=== PATIENT | male | born 1955 | race Caucasian/White ===

== ENCOUNTER 2021-04-04 08:45 | Inpatient (IN) | payer OTHER ==
[2021-04-04 09:18] LABS: Absolute Lymphocytes (CBC) 1.4 K/uL (0.7-4.9); Hematocrit 41.2 % (39.6-49.0); MPV 9.3 fL (7.6-11.3); RBC Red Blood Cell Count 4.87 M/uL (4.33-5.43)
[2021-04-04 09:19] LABS: Protime INR 1.15
[2021-04-04 09:22] LABS: Urine Blood Negative (Negative); Urine Glucose Trace (Negative); Urine Protein 2+ (Negative); Urine Specific Gravity >=1.030 (1.005-1.030); Urine pH 5.5 (5.0-7.0)
[2021-04-04 09:45] LABS: Albumin 3.2 g/dL (3.4-5.0); Bilirubin Direct 0.3 mg/dL (0-0.2); Potassium 3.8 mmol/L (3.5-5.1); Troponin High Sensitivity 13.8 pg/mL (<58.9)
[2021-04-04 09:48] LABS: SARS-COV-2 RT PCR NEGATIVE (NEGATIVE)
[2021-04-04 09:49] LABS: Urine Bacteria <20 /HPF (NONE SEEN); Urine Mucus 2+ /HPF (NONE SEEN); Urine RBC NONE SEEN /HPF (NONE SEEN)
--- NOTE | 2021-04-04 09:53 | RAD REPORT ---
EXAM DESCRIPTION: CT - Head Brain Wo Cont - 04/04/2021 9:24 am CLINICAL HISTORY: MENTAL STATUS CHANGE COMPARISON: <Comparisons> TECHNIQUE: Axial 5 mm thick images of the head were obtained without IV contrast. All CT scans are performed using dose optimization technique as appropriate and may include automated exposure control or mA/KV adjustment according to patient size. FINDINGS: No intracranial hemorrhage, mass, edema or shift of mid-line structures. No acute cortical based infarction seen. No cortical edema or sulcal effacement. Moderate severity atrophy is present more prominent than typically seen. Ventricles are in proportion to the volume loss. Chronic ischemic changes are mild. No abnormal extra-axial fluid collections. Mastoid air cells are clear. Mucosal thickening seen scattered in the paranasal sinuses without air-f luid levels present. No acute bony findings. IMPRESSION: No acute intracranial finding identifiable. Advanced for age atrophy changes are present with ventricles in proportion to the volume loss.
--- NOTE | 2021-04-04 10:57 | EDPHYS ---
Physician Documentation [facility] Name: Zac Perez Age: 66 yrs Sex: Male : 1955 Arrival Date: 04/04/2021 Time: 08:48 Bed 4 Private MD: ED Physician Georgina Dempsey HPI: 04/04 08:52 This 66 yrs old Unknown Male presents to ER via Unassigned with complaints of Altered cp Mental Status. 08:52 The patient presents with decreased mental status. Onset: The symptoms/episode cp began/occurred yesterday. Possible causes: unknown. Patient's baseline: Neuro: alert and fully oriented, Motor: no deficits, Ambulation: walks without assistance, Speech: normal. Historical: - Allergies: 09:04 No Known Allergies; daly - Home Meds: 09:04 Lasix 40 mg Oral tab 1 tab 2 times per day [Active]; potassium chloride 20 mEq Oral daly TbER 1 tab 2 times per day [Active]; valproic acid 125 mg Oral cpDR 3 times per day [Active]; loperamide 2 mg Oral tab 2 tabs [Active]; Namenda XR 28 mg oral CSpX 1 cap once daily [Active]; acetaminophen 325 mg Oral tab 1 tab every 4-6 hours [Active]; lisinopril 40 mg Oral tab 1 tab once daily [Active]; melatonin 10 mg Oral tab [Active]; quetiapine 200 mg oral Tb24 1 tab once daily [Active]; buspirone 10 mg Oral tab 1 tab 3 times per day [Active]; quetiapine 50 mg oral Tb24 1 tab once daily [Active]; thiamine HCl (vitamin B1) 100 mg Oral tab [Active]; folic acid 1 mg Oral tab 1 tab once daily [Active]; escitalopram oxalate 10 mg oral tab 1 tab once daily [Active]; - PMHx: 17:03 Alcoholism; Major depressive disorder; daly 17:05 Anxiety; Schizophrenia; daly - PSHx: 17:06 None; daly - Immunization history:: Adult Immunizations up to date. - Social history:: Smoking status: unknown. ROS: 08:53 Constitutional: Negative for fever. cp 08:53 Neuro: Positive for altered mental status. 08:53 Unable to obtain ROS due to altered mental status. Exam: 08:54 Head/Face: Normocephalic, atraumatic. cp 08:54 Constitutional: The patient appears in no acute distress, alert, awake, non-diaphoretic, non-toxic, well developed, well nourished. 08:54 Eyes: Pupils: equal, round, and reactive to light and accomodation, Conjunctiva: normal, no exudate, no injection, Sclera: no appreciated abnormality, Lids and lashes: appear normal, bilaterally. 08:54 ENT: External ear(s): are unremarkable, Ear canal(s): cerumen impaction, that is moderate, bilaterally, Nose: is normal, Mouth: Lips: dry, Oral mucosa: dry, Posterior pharynx: Airway: no evidence of obstruction, patent. 08:54 Neck: ROM/movement: nuchal rigidity, is not appreciated. 08:54 Chest/axilla: Inspection: normal, Palpation: is normal, no crepitus, no tenderness. 08:54 Respiratory: the patient does not display signs of respiratory distress, Respirations: normal, no use of accessory muscles, no retractions, labored breathing, is not present, Breath sounds: are clear throughout, no decreased breath sounds, no stridor, no wheezing. 08:54 Abdomen/GI: Inspection: distension, that is mild, Bowel sounds: active, all quadrants, Palpation: abdomen is soft and non-tender, in all quadrants. 08:54 Neuro: Orientation: to person, Mentation: confused, Motor: moves all fours. Vital Signs: 09:03 BP 105 / 72; Pulse 95; Resp 18; Temp 98.6(O); Pulse Ox 97% on R/A; Weight 111.13 kg; daly Height 6 ft. 0 in. (182.88 cm); 09:24 BP 108 / 68; Pulse 88; Resp 18; Pulse Ox 97% on R/A; daly 10:29 BP 135 / 76; Pulse 102; Resp 18; Pulse Ox 98% on R/A; daly 11:31 BP 128 / 97; Pulse 92; Resp 15; ww 12:30 BP 143 / 70; Pulse 91; Resp 16; Pulse Ox 100% on R/A; ww 13:50 BP 155 / 82; Pulse 90; Resp 23; Pulse Ox 99% on R/A; ww 14:42 BP 149 / 78; Pulse 97; Resp 16; Pulse Ox 100% on R/A; ww 15:00 BP 137 / 76; Pulse 94; Resp 18; Pulse Ox 97% on R/A; ww 16:01 BP 133 / 69; Pulse 91; Resp 18; Pulse Ox 99% on R/A; ww 17:10 BP 127 / 87; Pulse 90; Resp 16; Pulse Ox 100% on R/A; ww 09:03 Body Mass Index 33.23 (111.13 kg, 182.88 cm) daly MDM: 08:52 Patient medically screened. cp 09:00 Differential Diagnosis: CVA, electrolyte abnormality, intracranial bleed, overdose, cp pneumonia, seizure, sepsis, UTI, volume depletion. 11:05 Data reviewed: vital signs, nurses notes, lab test result(s), EKG, radiologic studies, cp CT scan, plain films. 11:05 Test interpretation: by ED physician or midlevel provider: ECG, plain radiologic cp studies. Physician consultation: Lennox Diana was called at 11:00, was contacted at 11:00, regarding admission, to the telemetry unit. patient's condition. 04/04 08:51 Order name: COVID-19/FLU A+B (Document "Date of Onset" if Symptomatic); Complete Time: cp 10:04/04 08:51 Order name: AMMONIA; Complete Time: 10:22 04/04 08:51 Order name: Blood Culture Adult (2) cp 04/04 08:51 Order name: Lactate; Complete Time: 09:42 04/04 08:51 Order name: Procalcitonin; Complete Time: 10:22 04/04 08:51 Order name: Urine Microscopic Only; Complete Time: 10:22 04/04 10:23 Interpretation: Reviewed. 04/04 08:51 Order name: Basic Metabolic Panel; Complete Time: 10:22 cp 04/04 10:22 Interpretation: Normal except: GLUC 140; BUN 20; GFR 65. 04/04 08:51 Order name: CBC with Diff; Complete Time: 09:42 cp 04/04 09:42 Interpretation: Normal except: WBC 14.10; HGB 13.5; REMIGIO% 74.4; LYM% 10.0; MN% 14.8; cp NEUT A 10.5; MNA 2.1. 04/04 08:51 Order name: LFT's; Complete Time: 10:22 cp 04/04 10:23 Interpretation: Normal except: AST 39; BILID 0.3; ALB 3.2; GLOB 4.8; A/G 0.7. 04/04 08:51 Order name: Magnesium; Complete Time: 10:22 04/04 08:51 Order name: NT PRO-BNP; Complete Time: 10:22 cp 04/04 10:23 Interpretation: NT PRO-BNP 440; Reviewed. 04/04 08:51 Order name: PT-INR; Complete Time: 09:25 cp 04/04 09:25 Interpretation: Reviewed. 04/04 08:51 Order name: Troponin HS; Complete Time: 10:22 cp 04/04 09:22 Order name: Urine Dipstick-Ancillary; Complete Time: 09:25 EDMS 04/04 09:25 Interpretation: Normal except: UKET 1+; UPROT 2+. 04/04 08:51 Order name: Urine Dipstick-Ancillary (obtain specimen); Complete Time: 09:45 04/04 08:51 Order name: Hunt; Complete Time: 09:45 04/04 08:51 Order name: XRAY Chest (1 view); Complete Time: 11:01 04/04 08:51 Order name: EKG; Complete Time: 08:52 04/04 08:51 Order name: Cardiac monitoring; Complete Time: 09: 04/04 08:51 Order name: EKG - Nurse/Tech; Complete Time: 09:11 04/04 08:51 Order name: IV Saline Lock; Complete Time: 09: 04/04 08:51 Order name: Labs collected and sent; Complete Time: 09: 04/04 08:51 Order name: O2 Per Protocol; Complete Time: 09: 04/04 08:51 Order name: O2 Sat Monitoring; Complete Time: 09:11 04/04 08:51 Order name: CT Head Brain wo Cont; Complete Time: 10: 04/04 09:17 Order name: Labs - recollect needed: recollect ammonia, send it with ice.; Complete bd Time: 09:44 04/04 18:00 Order name: CT EDMS Administered Medications: 14:38 Drug: NS 0.9% 250 ml Route: IV; Rate: bolus; Site: left forearm; 19:50 Follow up: IV Status: Completed infusion; IV Intake: 250ml sm5 15:25 Drug: NS 0.9% 500 ml Route: IV; Rate: 100 ml/hr; Site: left forearm; 19:50 Follow up: IV Status: Completed infusion; IV Intake: 500ml sm5 Disposition: 11:20 Chart complete. cp Disposition Summary: 04/04/21 10:56 Hospitalization Ordered Hospitalization Status: Inpatient Admission cp Provider: Lennox Ortiz cp Condition: Stable cp Problem: new cp Symptoms: are unchanged cp Bed/Room Type: Standard cp Location: Telemetry/MedSurg (observation)(04/04/21 19:42) eb1 Room Assignment: [facility](04/04/21 19:42) eb1 Diagnosis - Altered mental status, unspecified cp Forms: - Medication Reconciliation Form cp - SBAR form cp Signatures: Dispatcher [employer] EDPrincess Rodriges Shelby, RN RN Justin Maldonado PA PA cp Janel Rosa RN RN eb1 Chiquita Galvez RN ROBERTA Deja Rojas RN Negin Willett RN 5 Corrections: (The following items were deleted from the chart) 17:09 10:56 Telemetry/MedSurg (Inpatient) cp ss 17:09 10:56 cp ss 19:42 17:[address] [facility] ER HOLD ss eb1 19:42 17:09 ERHOLD- ss eb1
--- NOTE | 2021-04-04 10:57 | ER ---
Nurse's Notes [facility] Name: Zac Perez Age: 66 yrs Sex: Male : 1955 Arrival Date: 04/04/2021 Time: 08:48 Bed 4 Private MD: Diagnosis: Altered mental status, unspecified Presentation: 04/04 08:48 Transition of care: patient was received from another setting of care (long-term care [facility]. 09:03 Chief complaint: EMS states: AMS from alf x1day. Coronavirus screen: Vaccine daly status: Patient reports receiving the 2nd dose of the covid vaccine. Ebola Screen: Patient denies travel to an Ebola-affected area in the 21 days before illness onset. Initial Sepsis Screen: Does the patient meet any 2 criteria? HR > 90 bpm. Does the patient have a suspected source of infection? No. Patient's initial sepsis screen is negative. Risk Assessment: Do you want to hurt yourself or someone else? Patient reports no desire to harm self or others. Onset of symptoms was April 03, 2021. 09:03 Method Of Arrival: EMS: [facility] daly 09:03 Acuity: HASEEB 3 daly Triage Assessment: 09:04 General: Appears in no apparent distress. comfortable, Behavior is calm, cooperative. daly Pain: Denies pain. Neuro: Level of Consciousness is awake, obeys commands, lethargic, Oriented to person. Historical: - Allergies: 09:04 No Known Allergies; daly - Home Meds: 09:04 Lasix 40 mg Oral tab 1 tab 2 times per day [Active]; potassium chloride 20 mEq Oral daly TbER 1 tab 2 times per day [Active]; valproic acid 125 mg Oral cpDR 3 times per day [Active]; loperamide 2 mg Oral tab 2 tabs [Active]; Namenda XR 28 mg oral CSpX 1 cap once daily [Active]; acetaminophen 325 mg Oral tab 1 tab every 4-6 hours [Active]; lisinopril 40 mg Oral tab 1 tab once daily [Active]; melatonin 10 mg Oral tab [Active]; quetiapine 200 mg oral Tb24 1 tab once daily [Active]; buspirone 10 mg Oral tab 1 tab 3 times per day [Active]; quetiapine 50 mg oral Tb24 1 tab once daily [Active]; thiamine HCl (vitamin B1) 100 mg Oral tab [Active]; folic acid 1 mg Oral tab 1 tab once daily [Active]; escitalopram oxalate 10 mg oral tab 1 tab once daily [Active]; - PMHx: 17:03 Alcoholism; Major depressive disorder; daly 17:05 Anxiety; Schizophrenia; daly - PSHx: 17:06 None; daly - Immunization history:: Adult Immunizations up to date. - Social history:: Smoking status: unknown. Screenin:12 Abuse screen: Denies threats or abuse. Denies injuries from another. Nutritional daly screening: No deficits noted. Tuberculosis screening: No symptoms or risk factors identified. Fall Risk Mental Status- Overestimates/Forgets Limitations (15 pts.). Assessment: 09:12 Reassessment: refer to triage notes. Pain: Denies pain. Neuro: Level of Consciousness daly is awake, obeys commands, lethargic, Oriented to person. 10:30 Reassessment: Patient appears in no apparent distress at this time. No changes from ww previously documented assessment. Neuro: Level of Consciousness is awake, obeys commands, confused. 11:31 Reassessment: Patient appears in no apparent distress at this time. No changes from ww previously documented assessment. 12:20 Reassessment: Patient appears in no apparent distress at this time. No changes from ww previously documented assessment. Neuro: Level of Consciousness is awake, confused. 13:06 Reassessment: Patient appears in no apparent distress at this time. No changes from ww previously documented assessment. Neuro: Level of Consciousness is awake, obeys commands, confused, Oriented to person. 14:41 Reassessment: Patient appears in no apparent distress at this time. No changes from ww previously documented assessment. tolerated water and apple sauce. 15:30 Reassessment: No changes from previously documented assessment. Neuro: Level of ww Consciousness is awake, confused. 16:35 Reassessment: No changes from previously documented assessment. ww 17:29 Reassessment: Patient appears in no apparent distress at this time. No changes from ww previously documented assessment. 18:11 Reassessment: Patient appears in no apparent distress at this time. No changes from ww previously documented assessment. 19:50 Reassessment: No changes from previously documented assessment. Patient and/or family sm5 updated on plan of care and expected duration. Pain level reassessed. General: Appears in no apparent distress. comfortable, Behavior is calm. Vital Signs: 09:03 BP 105 / 72; Pulse 95; Resp 18; Temp 98.6(O); Pulse Ox 97% on R/A; Weight 111.13 kg; daly Height 6 ft. 0 in. (182.88 cm); 09:24 BP 108 / 68; Pulse 88; Resp 18; Pulse Ox 97% on R/A; daly 10:29 BP 135 / 76; Pulse 102; Resp 18; Pulse Ox 98% on R/A; daly 11:31 BP 128 / 97; Pulse 92; Resp 15; ww 12:30 BP 143 / 70; Pulse 91; Resp 16; Pulse Ox 100% on R/A; ww 13:50 BP 155 / 82; Pulse 90; Resp 23; Pulse Ox 99% on R/A; ww 14:42 BP 149 / 78; Pulse 97; Resp 16; Pulse Ox 100% on R/A; ww 15:00 BP 137 / 76; Pulse 94; Resp 18; Pulse Ox 97% on R/A; ww 16:01 BP 133 / 69; Pulse 91; Resp 18; Pulse Ox 99% on R/A; ww 17:10 BP 127 / 87; Pulse 90; Resp 16; Pulse Ox 100% on R/A; ww 09:03 Body Mass Index 33.23 (111.13 kg, 182.88 cm) daly ED Course: 08:48 Patient arrived in ED. ss 08:49 Justin Valdivia PA is PHCP. cp 08:49 Georgina Dempsey MD is Attending Physician. cp 09:04 Triage completed. 09:04 Arm band placed on. daly 09:11 Chiquita Galvez, RN is Primary Nurse. ww 09:12 Patient has correct armband on for positive identification. Bed in low position. Side daly rails up X 1. 09:12 No provider procedures requiring assistance completed. Inserted saline lock: 18 gauge daly in left forearm, using aseptic technique. 09:13 Maintain EMS IV. Dressing intact. Gauge \T\ site: 20g left hand. daly 09:15 playground monitor on. Pulse ox on. NIBP on. ww 09:15 Initial lab(s) drawn, by me, sent to lab. EKG done, by ED staff, COVID swab sent to lab.ww 09:15 Hunt cath inserted, using sterile technique, 16 Fr., by pr, balloon inflated, to gravity drainage, urine specimen collected. returned gertrudis urine. Patient tolerated well. 09:24 CT Head Brain wo Cont In Process Unspecified. EDMS 09:25 XRAY Chest (1 view) In Process Unspecified. EDMS 10:56 Lennox Ortiz is Hospitalizing Provider. cp Administered Medications: 14:38 Drug: NS 0.9% 250 ml Route: IV; Rate: bolus; Site: left forearm; ww 19:50 Follow up: IV Status: Completed infusion; IV Intake: 250ml sm5 15:25 Drug: NS 0.9% 500 ml Route: IV; Rate: 100 ml/hr; Site: left forearm; ww 19:50 Follow up: IV Status: Completed infusion; IV Intake: 500ml sm5 Intake: 19:50 IV: 500ml; Total: 500ml. sm5 19:50 IV: 250ml; Total: 750ml. sm5 Outcome: 10:56 Decision to Hospitalize by Provider. cp 21:00 Patient left the ED. mw2 Signatures: Dispatcher [employer] EDMS Ursula Jaramillo RN RN Justin Maldonado PA PA cp Ash Perez mw2 Negin Ivory RN RN 5 Chiquita Galvez, RN ROBERTA Deja Rojas RN RN daly
--- NOTE | 2021-04-04 10:59 | RAD REPORT ---
EXAM DESCRIPTION: RAD - Chest Single View - 04/04/2021 9:25 am CLINICAL HISTORY: AMS COMPARISON: None TECHNIQUE: AP portable chest image was obtained 04/04/2021 9:25 am . FINDINGS: Lung volumes are low. No peripheral mass or consolidation. No failure or volume overload s een. Heart size and mediastinal silhouette are accentuated by portable technique and low lung volumes . No measurable pleural effusion and no pneumothorax. No acute bony abnormality seen. No acute aortic findings suspected. IMPRESSION: No acute cardiopulmonary process suspected.
[2021-04-04] MEDS ORDERED: NA CHLORIDE 0.9% 1,000 ML ONE (14:40)
[2021-04-04 17:02] VITALS: BMI 33.2
--- NOTE | 2021-04-04 17:43 | P.HP ---
Certification for Inpatient Patient admitted to: Inpatient With expected LOS: >2 Midnights Practitioner: I am a practitioner with admitting privileges, knowledge of patient current condition, hospital course, and medical plan of care. Services: Services provided to patient in accordance with Admission requirements found in Title 42 Section 412.3 of the Code of Federal Regulations Patient History Date of Service: 04/04/21 Reason for admission: Altered mental status. History of Present Illness: 66-year-old prison resident with a history of hypertension, major depressive disorder, psychosis, schizoaffective disorder [facility] the [facility] the emergency department due to altered mental status. Patient is unable to provide any history. No reported fever or vomiting or diarrhea. Work-up in the emergency department unremarkable except leukocytosis. Head CT negative for any acute disease. Chest x-ray shows no acute disease. Patient hospitalized for further management. - Past Medical/Surgical History -: Schizoaffective disorder -: Hypertension -: Major depressive disorder -: Gait disturbance -: History of alcohol abuse -: Psychosis - Social History Smoking Status: Unknown if ever smoked Alcohol use: No Place of Residence: [facility] Review of Systems is unable to be obtained Physical Examination - Vital Signs Temperature: 98.4 F Blood Pressure: 133/69 Pulse: 91 Respirations: 18 Pulse Ox (%): 97 - Physical Exam General: In no apparent distress, Confused, Obese HEENT: Normocephalic, Mucous membr. moist/pink, EOMI, Sclerae nonicteric Neck: Supple, JVD not distended Respiratory: Clear to auscultation bilaterally, Normal air movement Cardiovascular: No edema, Regular rate/rhythm, Normal S1 S2 Capillary refill: <2 Seconds Gastrointestinal: Normal bowel sounds, Soft and benign, Distended Musculoskeletal: No swelling, No erythema Integumentary: No rashes, No cyanosis Neurological: Other (Moves all extremities) Lymphatics: No axilla or inguinal lymphadenopathy - Studies Laboratory Data (last 24 hrs) 04/04/21 08:40: PT 13.2 H, INR 1.15 04/04/21 08:40: WBC 14.10 H, Hgb 13.5 L, Hct 41.2, Plt Count 240 04/04/21 08:40: Sodium 141, Potassium 3.8, BUN 20 H, Creatinine 1.12, Glucose 140 H, Magnesium 2.0, Total Bilirubin 1.0, AST 39 H, ALT 34, Alkaline Phosphatase 58 Assessment and Plan - Problems (Diagnosis) (1) Acute metabolic encephalopathy Current Visit: Yes Status: Acute (2) Psychosis Current Visit: Yes Status: Acute (3) Major depressive disorder Current Visit: Yes Status: Acute (4) Leukocytosis Current Visit: Yes Status: Acute - Plan Place patient under observation. Patient is on multiple psychotropic medications-Exelon patch, Seroquel, Lexapro, valproic acid. We will hold Seroquel and valproic acid. Continue Exelon patch. Hydrate with IV fluid. CT abdomen and pelvis results reviewed and shows no acute pathology. UA shows no evidence of UTI. Follow blood cultures. Validate and reconcile other home medications. Neurochecks. - Advance Directives Does patient have a Living Will: No Does patient have a Durable POA for Healthcare: No
--- NOTE | 2021-04-04 17:58 | RAD REPORT ---
EXAM DESCRIPTION: CTAbdomen Pelvis W Contrast - 04/04/2021 5:48 pm CLINICAL HISTORY: Abdominal pain. Distended abdomen COMPARISON: No comparisons TECHNIQUE: Biphasic CT imaging of the abdomen and pelvis was performed with 100 ml non-ionic IV cont rast. All CT scans are performed using dose optimization technique as appropriate and may include automated exposure control or mA/KV adjustment according to patient size. FINDINGS: Linear subsegmental atelectasis is present in both posterior lung bases. The liver, spleen, pancreas, adrenal glands and kidneys are within normal limits. 3 cm benign cyst ri ght kidney. No bowel obstruction, free air, free fluid or abscess. Mild sigmoid diverticulosis without diverticul itis. The appendix is normal. No evidence of significant lymphadenopathy. Small fat containing left inguinal hernia. No suspicious bony findings. IMPRESSION: No acute intra-abdominal or pelvic finding.
[2021-04-04] MEDS ORDERED: ONDANSETRON 4 MG/2 ML VIAL IV PRN (22:19)
[2021-04-04] MEDS ORDERED: ACETAMINOPHEN 500 MG TAB PO PRN (22:19)
[2021-04-04] MEDS: NA CHLORIDE 0.9% 1,000 ML IV SCH (22:58)
[2021-04-05 04:49] LABS: Absolute Lymphocytes (CBC) 1.5 K/uL (0.7-4.9); Hematocrit 39.1 % (39.6-49.0); Lymphocytes % 12.6 % (15.3-44.8); MPV 8.6 fL (7.6-11.3); RBC Red Blood Cell Count 4.56 M/uL (4.33-5.43)
[2021-04-05 05:10] LABS: ALT/SGPT 31 U/L (12-78); AST/SGOT 70 U/L (15-37); Albumin 2.9 g/dL (3.4-5.0); Alkaline Phosphatase 53 U/L (45-117); BUN Blood Urea Nitrogen 21 mg/dL (7-18); Bicarbonate 31 mmol/L (21-32); Glucose Level 126 mg/dL (74-106); Magnesium 2.2 mg/dL (1.8-2.4); Phosphorus 2.8 mg/dL (2.5-4.9); Potassium 3.3 mmol/L (3.5-5.1); Protein, Total 7.3 g/dL (6.4-8.2); Sodium Level 140 mmol/L (136-145)
[2021-04-05] MEDS: HYDRALAZINE HCL 20 MG/ML VIAL IV PRN ×2 (05:51→16:34)
[2021-04-05] MEDS: KCL 20 MEQ/100 mL IVPB 20 MEQ/100 ML BAG IV SCH ×2 (06:00→08:00)
[2021-04-05] MEDS ORDERED: POTASSIUM 25 MEQ EFFERV TAB PO ONE (09:32)
[2021-04-05] MEDS: ENOXAPARIN 40 MG/0.4 ML SQ SCH (09:48)
[2021-04-05] MEDS: NA CHLORIDE 0.9% 1,000 ML IV SCH ×2 (11:39→15:47)
--- NOTE | 2021-04-05 12:23 | P.PN ---
Subjective Date of Service: 04/05/21 Chief Complaint: Altered mental status. Patient is more awake today and communicating. He does obey commands but a bit confused. Physical Examination - Vital Signs Temperature: 97.8 F Blood Pressure: 151/84 Pulse: 69 Respirations: 16 Pulse Ox (%): 98 - Physical Exam General: In no apparent distress, Confused, Other (Awake) HEENT: Mucous membr. moist/pink Neck: JVD not distended Respiratory: Clear to auscultation bilaterally, Normal air movement Cardiovascular: No edema, Regular rate/rhythm, Normal S1 S2 Gastrointestinal: Normal bowel sounds, Soft and benign, Non-distended Musculoskeletal: No swelling, No erythema Integumentary: No rashes Neurological: Normal speech, Normal strength at 5/5 x4 extr, Cranial nerves 3-12 intact - Studies Laboratory Data (last 24 hrs) 04/05/21 04:19: Sodium 140, Potassium 3.3 L, BUN 21 H, Creatinine 0.83, Glucose 126 H, Phosphorus 2.8, Magnesium 2.2, Total Bilirubin 1.0, AST 70 H, ALT 31, Alkaline Phosphatase 53 04/05/21 04:19: WBC 11.60 H D, Hgb 12.9 L, Hct 39.1 L, Plt Count 193 Assessment And Plan - Current Problems (Diagnosis) (1) Acute metabolic encephalopathy Current Visit: Yes Status: Acute (2) Psychosis Current Visit: Yes Status: Acute (3) Major depressive disorder Current Visit: Yes Status: Acute (4) Leukocytosis Current Visit: Yes Status: Acute - Plan Patient is on multiple psychotropic medications-Exelon patch, Seroquel, Lexapro, valproic acid. Mental status improved without psychotropic medications. Resume Exelon patch and Lexapro. Check valproic acid level before resuming valproic acid. We will switch Seroquel to Risperdal which is less sedating. Continue to hydrate with IV fluid. CT abdomen and pelvis results reviewed and shows no acute pathology. UA shows no evidence of UTI. Blood cultures: No growth Feeding as tolerated
[2021-04-05 13:50] VITALS: O2SAT 98
[2021-04-05] MEDS: VANCOMYCIN 2 GM in NA CHLORIDE 0.9% 500 ML IVPB SCH (15:54)
[2021-04-05] MEDS ORDERED: VANCOMYCIN 1 GM in NA CHLORIDE 0.9% 250 ML IVPB SCH (21:00)
[2021-04-05] MEDS ORDERED: POTASSIUM CL SA 10 MEQ TAB PO ONE (21:00)
[2021-04-05] MEDS: POTASSIUM CL SA 10 MEQ TAB PO SCH (21:02)
[2021-04-05] MEDS: THIAMINE HCL 100 MG TABLET PO SCH (21:02)
[2021-04-05] MEDS: RISPERIDONE 1 MG TABLET PO SCH (21:02)
[2021-04-06] MEDS: VANCOMYCIN 2 GM in NA CHLORIDE 0.9% 500 ML IVPB SCH ×2 (03:02→15:00)
[2021-04-06 04:22] LABS: Absolute Lymphocytes (CBC) 1.5 K/uL (0.7-4.9); Hematocrit 38.4 % (39.6-49.0); Lymphocytes % 10.4 % (15.3-44.8); RBC Red Blood Cell Count 4.47 M/uL (4.33-5.43)
[2021-04-06 04:42] LABS: BUN Blood Urea Nitrogen 19 mg/dL (7-18); Bicarbonate 26 mmol/L (21-32); Glucose Level 134 mg/dL (74-106); Potassium 3.4 mmol/L (3.5-5.1); Sodium Level 140 mmol/L (136-145)
[2021-04-06] MEDS ORDERED: POTASSIUM 25 MEQ EFFERV TAB PO ONE (05:13)
[2021-04-06] MEDS ORDERED: HOME MED 1 EA UNK (Memantine Hcl [Namenda Xr] 28 MG Cap.Spr.24) PO SCH (09:00)
[2021-04-06] MEDS ORDERED: RIVASTIGMINE 13.3 MG/24 HR TOP SCH (09:00)
[2021-04-06] MEDS ORDERED: ESCITALOPRAM 20 MG TAB PO SCH (09:00)
[2021-04-06] MEDS: RISPERIDONE 1 MG TABLET PO SCH (09:50)
[2021-04-06] MEDS: POTASSIUM CL SA 10 MEQ TAB PO SCH (09:50)
[2021-04-06] MEDS: THIAMINE HCL 100 MG TABLET PO SCH (09:51)
[2021-04-06] MEDS: ENOXAPARIN 40 MG/0.4 ML SQ SCH (09:51)
--- NOTE | 2021-04-06 10:51 | P.DS ---
Admission Date: 04/05/21 Discharge Date: 04/06/21 Disposition: TRANSFER TO LONGTERM Discharge Condition: FAIR Reason for Admission: Altered mental status. - Problems (1) Acute metabolic encephalopathy Current Visit: Yes Status: Acute (2) Psychosis Current Visit: Yes Status: Acute (3) Major depressive disorder Current Visit: Yes Status: Acute (4) Leukocytosis Current Visit: Yes Status: Acute Brief History of Present Illness: 66-year-old jail resident with a history of hypertension, major depressive disorder, psychosis, schizoaffective disorder was transferred from the jail to the emergency department due to altered mental status. Patient is unable to provide any history. No reported fever or vomiting or diarrhea. Work-up in the emergency department unremarkable except leukocytosis. Head CT negative for any acute disease. Chest x-ray shows no acute disease. Patient hospitalized for further management. Hospital Course: Patient on multiple psychotropic medications-Exelon patch, Seroquel, Lexapro, valproic acid. Altered mental status deemed secondary to polypharmacy Mental status improved without psychotropic medications. Resumed Exelon patch and Lexapro. Seroquel switched to Risperdal which is less sedating. valproic acid level was low so resumed valproic acid on discharge. UA showed no UTI. 1 out of 4 blood culture bottles grew gram-positive cocci which is likely a skin contaminant. Patient was treated with vancomycin briefly. He was also hydrated with IV fluid. CT abdomen and pelvis results reviewed and shows no acute pathology. Patient is mental status improved, he became interactive, and was eating well. He is apparently back to baseline and deemed stable for discharge. Vital Signs/Physical Exam: Temp Pulse Resp BP Pulse Ox 98.5 F 68 18 151/71 H 97 04/06/21 08:00 04/06/21 08:00 04/06/21 08:00 04/06/21 08:00 04/06/21 08:00 General: In no apparent distress, Other (Awake) HEENT: Mucous membr. moist/pink Neck: JVD not distended, No Thyromegaly Respiratory: Clear to auscultation bilaterally Cardiovascular: No edema, Regular rate/rhythm, Normal S1 S2 Gastrointestinal: Normal bowel sounds, Soft and benign, Non-distended Musculoskeletal: No swelling, No tenderness Integumentary: No rashes, No erythema, No cyanosis Neurological: Other (No focal motor deficit.) Laboratory Data at Discharge: WBC 14.30 K/uL (4.3-10.9) H D 04/06/21 03:46 Hgb 12.4 g/dL (13.6-17.9) L 04/06/21 03:46 Hct 38.4 % (39.6-49.0) L 04/06/21 03:46 Plt Count 190 K/uL (152-406) 04/06/21 03:46 PT 13.2 SECONDS (9.5-12.5) H 04/04/21 08:40 INR 1.15 04/04/21 08:40 Sodium 140 mmol/L (136-145) 04/06/21 03:46 Potassium 3.4 mmol/L (3.5-5.1) L 04/06/21 03:46 BUN 19 mg/dL (7-18) H 04/06/21 03:46 Creatinine 0.76 mg/dL (0.55-1.3) 04/06/21 03:46 Glucose 134 mg/dL (74-106) H 04/06/21 03:46 Phosphorus 2.8 mg/dL (2.5-4.9) 04/05/21 04:19 Magnesium 2.2 mg/dL (1.8-2.4) 04/05/21 04:19 Total Bilirubin 1.0 mg/dL (0.2-1.0) 04/05/21 04:19 AST 70 U/L (15-37) H 04/05/21 04:19 ALT 31 U/L (12-78) 04/05/21 04:19 Alkaline Phosphatase 53 U/L (45-117) 04/05/21 04:19 Home Medications: Acetaminophen 325 mg PO Q6HP PRN 04/05/21 Buspirone HCl [Buspar] 10 mg PO TID 04/05/21 Escitalopram Oxalate 10 mg PO DAILY 04/05/21 Folic Acid 1 mg PO DAILY 04/05/21 Furosemide [Lasix*] 40 mg PO BID 04/05/21 Loperamide HCl [Imodium A-D] 2 mg PO SEECOM PRN 04/05/21 Melatonin 10 mg PO BEDTIME 04/05/21 Memantine HCl [Namenda Xr] 28 mg PO DAILY 04/05/21 Potassium Chloride 20 meq PO BID 04/05/21 Rivastigmine [Exelon] 13.3 mg TD DAILY 04/05/21 Thiamine Mononitrate (Vit B1) [Vitamin B-1] 100 mg PO BID 04/05/21 Valproic Acid Syrup [Depakene Syrup*] 12.5 ml PO TID 04/05/21 lisinopriL [Lisinopril] 40 mg PO DAILY 04/05/21 risperiDONE [Risperdal 1 mg tab*] 1 mg PO BID tab 04/06/21 Diet: AHA Activity: Fall precautions Followup: NONE,NONE [Primary Care Provider] - 1-2 Weeks Time spent managing pt's care (in minutes): 40
[2021-04-06] MEDS: HYDRALAZINE HCL 20 MG/ML VIAL IV PRN (16:31)
[2021-04-06 16:34] VITALS: TEMP 98.6
[2021-04-06 17:42] VITALS: BP 146/65
== END 2021-04-06 18:18 | DRG 93 ==
LOC: ER 08:45 → ERHOLD 10:59 → 2ND 21:26 → OBSVTOIN 04-05 09:49
PROVIDERS: ADMIT Internal Medicine; ATTEND Internal Medicine
DX: G92.8 Other toxic encephalopathy (principal); I10 Essential (primary) hypertension; F29 Unspecified psychosis not due to a substance or known physiological condition; F32.9 Major depressive disorder, single episode, unspecified; D72.829 Elevated white blood cell count, unspecified; T44.1X5A Adverse effect of other parasympathomimetics [cholinergics], initial encounter; T43.595A Adverse effect of other antipsychotics and neuroleptics, initial encounter; T43.225A Adverse effect of selective serotonin reuptake inhibitors, initial encounter; Z79.899 Other long term (current) drug therapy; Z20.822 Contact with and (suspected) exposure to COVID-19
CPT/HCPCS: 0240U; 36415; 51702; 70450; 71045; 74177; 80048; 80053; 80076; 80164; 81003; 81015; 82140; 83605; 83735; 83880; 84100; 84132; 84145; 84439; 84443; 84484; 85025; 85610; 87040; 87205; 93005; 96365; 96366; 99285; G0378; J0360; J1650; J3370; J3480; J7030; J7040; Q9967

== ENCOUNTER 2021-09-12 19:14 | Emergency (ER) | payer OTHER ==
[2021-09-12 20:46] LABS: Absolute Lymphocytes (CBC) 1.2 K/uL (0.7-4.9); Hematocrit 37.7 % (39.6-49.0); Lymphocytes % 8.7 % (15.3-44.8); MCV 81.9 fL (80-100); MPV 10.4 fL (7.6-11.3)
[2021-09-12 20:56] LABS: Protime INR 1.1
[2021-09-12] MEDS ORDERED: NA CHLORIDE 0.9% 500 ML ONE (21:10)
[2021-09-12 21:15] LABS: BUN Blood Urea Nitrogen 24 mg/dL (7-18); Bicarbonate 24 mmol/L (21-32); Ferritin 383.4 ng/mL (26-388); Glomerular Filtration Rate 50 ml/min (=/>90); Glucose Level 153 mg/dL (74-106); Sodium Level 145 mmol/L (136-145)
--- NOTE | 2021-09-12 21:17 | RAD REPORT ---
EXAM DESCRIPTION: RAD - Chest Single View - 09/12/2021 9:10 pm CLINICAL HISTORY: COVID, weakness Chest pain. COMPARISON: Chest Single View dated 04/04/2021 FINDINGS: Portable technique limits examination quality. The lungs are grossly clear. The heart is normal in size. No displaced fractures. IMPRESSION: No acute intrathoracic process suspected.
[2021-09-12 21:19] LABS: C-Reactive Protein < 2.90 mg/L (<3.00); Potassium 2.8 mmol/L (3.5-5.1)
[2021-09-12] MEDS ORDERED: KCL 20 MEQ/100 mL IVPB 100 ML IV ONE (21:43)
[2021-09-12 22:05] LABS: Urine Blood Negative (Negative); Urine Glucose Negative (Negative); Urine Protein 1+ (Negative); Urine Specific Gravity 1.015 (1.005-1.030)
[2021-09-12 22:19] LABS: Urine Bacteria <20 /HPF (NONE SEEN); Urine Mucus SLIGHT /HPF (NONE SEEN); Urine RBC <5 /HPF (NONE SEEN)
--- NOTE | 2021-09-12 22:24 | EDPHYS ---
Physician Documentation [facility] Name: Zac Perez Age: 66 yrs Sex: Male : 1955 Arrival Date: 09/12/2021 Time: 19:15 Bed 7 Private MD: ED Physician Ming Byrnes HPI: 09/12 21:23 This 66 yrs old Male presents to ER via EMS with complaints of Unresponsive. rn 21:23 The patient presents with decreased responsiveness. Onset: The symptoms/episode rn began/occurred at an unknown time. Possible causes: unknown. Current symptoms: In the emergency department the patient's symptoms have improved. It is unknown whether or not the patient has had similar symptoms in the past. It is unknown whether or not the patient has recently seen a physician. EMS reports called out for AMS and unresponsiveness, when EMS got there was completely awake and without complaints. EMS reports patient was recovering from COVID recently. No fever. Vitals stable per EMS. Patient without complaint. . Historical: - Home Meds: 23:17 acetaminophen 325 mg Oral tab 1 tab every 4-6 hours [Active]; buspirone 10 mg Oral tab kd3 1 tab 3 times per day [Active]; escitalopram oxalate 10 mg Oral tab 1 tab once daily [Active]; folic acid 1 mg Oral tab 1 tab once daily [Active]; Lasix 40 mg Oral tab 1 tab 2 times per day [Active]; lisinopril 40 mg Oral tab 1 tab once daily [Active]; loperamide 2 mg Oral tab 2 tabs [Active]; Namenda XR 28 mg Oral CSpX 1 cap once daily [Active]; potassium chloride 20 mEq Oral TbER 1 tab 2 times per day [Active]; melatonin 10 mg Oral tab [Active]; quetiapine 200 mg Oral Tb24 1 tab once daily [Active]; quetiapine 50 mg Oral Tb24 1 tab once daily [Active]; thiamine HCl (vitamin B1) 100 mg Oral tab [Active]; valproic acid 125 mg Oral cpDR 3 times per day [Active]; - PMHx: 19:20 Alcoholism; Anxiety; Major Depressive Disorder; Schizophrenia; ss - Immunization history:: Adult Immunizations. - Social history:: Smoking status: unknown. - Family history:: not pertinent. - Hospitalizations: : No recent hospitalization is reported. - History obtained from: EMS. ROS: 21:23 Constitutional: Negative for fever, chills, and weight loss, Eyes: Negative for injury, rn pain, redness, and discharge, Neck: Negative for injury, pain, and swelling, Cardiovascular: Negative for chest pain, palpitations, and edema, Respiratory: Negative for shortness of breath, cough, wheezing, and pleuritic chest pain, Abdomen/GI: Negative for abdominal pain, nausea, vomiting, diarrhea, and constipation, Back: Negative for injury and pain, MS/Extremity: Negative for injury and deformity, Skin: Negative for injury, rash, and discoloration, Neuro: Negative for headache, weakness, numbness, tingling, and seizure. Exam: 21:23 Constitutional: This is a well developed, well nourished patient who is awake, alert, rn and in no acute distress. Head/Face: Normocephalic, atraumatic. Eyes: Periorbital areas with no swelling, redness, or edema. ENT: dry MM Cardiovascular: Regular rate and rhythm. No pulse deficits. Respiratory: No increased work of breathing, no retractions or nasal flaring. Abdomen/GI: Soft, non-tender Skin: Warm, dry MS/ Extremity: Pulses equal, no cyanosis. Neuro: Awake and alert, GCS 15, oriented to person, not place or time. Vital Signs: 20:22 Pulse 67; Resp 13; Pulse Ox 100% ; kd3 20:26 BP 90 / 55; kd3 20:26 Weight 68.49 kg; kd3 21:00 Temp 98.2(T); kd3 21:13 BP 101 / 52; Pulse 65; Resp 12; Pulse Ox 97% on R/A; tw5 21:40 BP 96 / 52; Pulse 65; Resp 18; Pulse Ox 98% on R/A; tw5 22:22 BP 110 / 43; Pulse 84; rn 23:17 BP 97 / 56; Pulse 83; Resp 13; Pulse Ox 98% on R/A; kd3 0707 00:07 BP 105 / 49; Pulse 65; Resp 17; Pulse Ox 100% ; kd3 MDM: 07 19:17 Patient medically screened. rn 22:22 Differential Diagnosis: electrolyte abnormality, hypoglycemia, pneumonia, sepsis, UTI, rn volume depletion. Data reviewed: vital signs, nurses notes, lab test result(s), radiologic studies, plain films, and as a result, I will discharge patient. Counseling: I had a detailed discussion with the patient and/or guardian regarding: the historical points, exam findings, and any diagnostic results supporting the discharge/admit diagnosis, lab results, radiology results, the need for outpatient follow up, to return to the emergency department if symptoms worsen or persist or if there are any questions or concerns that arise at home. Response to treatment: the patient's symptoms have markedly improved after treatment, and as a result, I will discharge patient. Special discussion: I discussed with the patient/guardian in detail that at this point there is no indication for admission to the hospital. It is understood, however, that if the symptoms persist or worsen the patient needs to return immediately for re-evaluation. ED course: Pt still without complaints, no oxygen requirement, likely still residual effects of COVID, given potassium and fluids with improvement. . 09/12 19:23 Order name: BMP; Complete Time: 21: rn 09/12 19:23 Order name: Blood Culture Adult (2) rn 09/12 19:23 Order name: C-Reactive Protein; Complete Time: 21: rn 09/12 19:23 Order name: CBC with Diff; Complete Time: 21: rn 09/12 19:23 Order name: Ferritin; Complete Time: : rn 09/12 19:23 Order name: Lactate; Complete Time: 21: rn 09/12 19:23 Order name: PT-INR; Complete Time: 21:10 rn 09/12 19:23 Order name: Procalcitonin; Complete Time: 21:50 rn 09/12 19:23 Order name: Ptt, Activated; Complete Time: 21:10 rn 09/12 19:23 Order name: Urine Microscopic Only; Complete Time: 22:21 rn 09/12 19:23 Order name: CXR XRAY; Complete Time: 21: rn 09/12 19:23 Order name: SARS-COV-2 RT PCR (Document "Date of Onset" if Symptomatic); Complete Time: rn :09/12 19:23 Order name: AMMONIA; Complete Time: 21: rn 09/12 22:06 Order name: Urine Dipstick-Ancillary; Complete Time: 22: EDMS 09/12 19:23 Order name: EKG; Complete Time: 19:23 rn 09/12 19:23 Order name: Cardiac monitoring; Complete Time: 21:15 rn 09/12 19:23 Order name: Droplet/Contact Precautions; Complete Time: 21:15 rn 09/12 19:23 Order name: EKG - Nurse/Tech; Complete Time: 21:40 rn 09/12 19:23 Order name: IV Start; Complete Time: 20:59 rn 09/12 19:23 Order name: Labs collected and sent; Complete Time: 20:59 rn 09/12 19:23 Order name: O2 Per Protocol; Complete Time: 20:59 rn 09/12 19:23 Order name: O2 Sat Monitoring; Complete Time: 20:59 rn 09/12 19:23 Order name: Urine Dipstick-Ancillary (obtain specimen); Complete Time: 22:05 rn Administered Medications: 21:18 Drug: NS 0.9% 500 ml Route: IV; Rate: bolus; Site: left forearm; tw5 23:18 Follow up: Response: No adverse reaction kd3 23:29 Follow up: Response: No adverse reaction; IV Status: Completed infusion; IV Intake: tw5 500ml 21:40 Drug: Potassium Chloride 20 mEq Route: IV; Rate: calculated rate; Site: left forearm; tw5 23:29 Follow up: Response: No adverse reaction; IV Status: Completed infusion; IV Intake: tw5 100ml 09/13 00:33 Follow up: Response: No adverse reaction kd3 09/12 23:29 Drug: NS 0.9% 250 ml Route: IV; Rate: 1 bolus; Site: left forearm; tw5 09/13 00:33 Follow up: Response: No adverse reaction; IV Status: Completed infusion kd3 Disposition Summary: 09/12/21 22:24 Discharge Ordered Location: Home rn Problem: an ongoing problem rn Symptoms: have improved rn Condition: Stable rn Diagnosis - SARS-associated coronavirus as the cause of diseases classified elsewhere rn - Hypokalemia rn - Dehydration rn Followup: rn - With: Private Physician - When: As needed - Reason: Recheck today's complaints, Re-evaluation by your physician Discharge Instructions: - Discharge Summary Sheet rn - Dehydration, Adult rn - Hypokalemia rn - COVID-19 rn - Viral Illness, Adult rn Forms: - Medication Reconciliation Form rn - Thank You Letter rn - Antibiotic internet assessor - Prescription Opioid Use rn - SBAR form mw2 Signatures: Dispatcher [employer] Ming Yoo MD MD rn Smirch, Shelby, Sameer Jean RN, ANTHROPOLOGY DEPARTMENT CHAIR-C ANTHROPOLOGY DEPARTMENT CHAIR-Kurt1 Denisse Galvez tw5 Thu Rust RN RN kd3
--- NOTE | 2021-09-12 22:24 | ER ---
Nurse's Notes [facility] Name: Zac Perez Age: 66 yrs Sex: Male : 1955 Arrival Date: 09/12/2021 Time: 19:15 Bed 7 Private MD: Diagnosis: SARS-associated coronavirus as the cause of diseases classified elsewhere;Hypokalemia;Dehydration Presentation: 09/12 19:16 Chief complaint: EMS states: Called out for "unresponsive patient". Upon EMS arrival. ss Pt was awake and oriented to baseline. Coronavirus screen: Client denies travel out of the [place] in the last 14 days. Initial Sepsis Screen: Does the patient have a suspected source of infection? No. Patient's initial sepsis screen is negative. Note EMS reports that retirement staff stated that patient took a Seroquel at 1700 this evening. retirement staff reports sternal rubbing patient until he woke up. Onset of symptoms was September 12, 2021. 19:16 Method Of Arrival: EMS: [facility] ss 19:16 Acuity: HASEEB 3 ss 20:22 Ebola Screen: No symptoms or risks identified at this time. Initial Sepsis Screen: Does kd3 the patient meet any 2 criteria? No. Patient's initial sepsis screen is negative. Risk Assessment: Do you want to hurt yourself or someone else? Patient reports no desire to harm self or others. Triage Assessment: 20:22 General: Appears in no apparent distress. Behavior is agitated. Pain: Denies pain. kd3 Historical: - Home Meds: 23:17 acetaminophen 325 mg Oral tab 1 tab every 4-6 hours [Active]; buspirone 10 mg Oral tab kd3 1 tab 3 times per day [Active]; escitalopram oxalate 10 mg Oral tab 1 tab once daily [Active]; folic acid 1 mg Oral tab 1 tab once daily [Active]; Lasix 40 mg Oral tab 1 tab 2 times per day [Active]; lisinopril 40 mg Oral tab 1 tab once daily [Active]; loperamide 2 mg Oral tab 2 tabs [Active]; Namenda XR 28 mg Oral CSpX 1 cap once daily [Active]; potassium chloride 20 mEq Oral TbER 1 tab 2 times per day [Active]; melatonin 10 mg Oral tab [Active]; quetiapine 200 mg Oral Tb24 1 tab once daily [Active]; quetiapine 50 mg Oral Tb24 1 tab once daily [Active]; thiamine HCl (vitamin B1) 100 mg Oral tab [Active]; valproic acid 125 mg Oral cpDR 3 times per day [Active]; - PMHx: 19:20 Alcoholism; Anxiety; Major Depressive Disorder; Schizophrenia; ss - Immunization history:: Adult Immunizations. - Social history:: Smoking status: unknown. - Family history:: not pertinent. - Hospitalizations: : No recent hospitalization is reported. - History obtained from: EMS. Screenin:24 Abuse screen: Denies threats or abuse. Denies injuries from another. Nutritional kd3 screening: No deficits noted. Tuberculosis screening: No symptoms or risk factors identified. Fall Risk IV access (20 points). Mental Status- Overestimates/Forgets Limitations (15 pts.). Assessment: 21:13 General: Appears in no apparent distress. Behavior is drowsy. Neuro: Level of tw5 Consciousness is confused. Respiratory: Airway is patent Trachea midline Respiratory effort is even, unlabored, Breath sounds are clear. Vital Signs: 20:22 Pulse 67; Resp 13; Pulse Ox 100% ; kd3 20:26 BP 90 / 55; kd3 20:26 Weight 68.49 kg; kd3 21:00 Temp 98.2(T); kd3 21:13 BP 101 / 52; Pulse 65; Resp 12; Pulse Ox 97% on R/A; tw5 21:40 BP 96 / 52; Pulse 65; Resp 18; Pulse Ox 98% on R/A; tw5 22:22 BP 110 / 43; Pulse 84; rn 23:17 BP 97 / 56; Pulse 83; Resp 13; Pulse Ox 98% on R/A; kd3 07 00:07 BP 105 / 49; Pulse 65; Resp 17; Pulse Ox 100% ; kd3 ED Course: 09/12 19:15 Patient arrived in ED. ss 19:17 Ming Byrnes MD is Attending Physician. rn 19:20 Triage completed. ss 20:06 Thu Rust, RN is Primary Nurse. kd3 20:22 Arm band placed on right wrist. EKG completed in triage. Results shown to MD. EKG kd3 completed in triage. Results shown to MD. EKG completed in triage. Results shown to MD. EKG completed in triage. Results shown to MD. 21:12 CXR XRAY In Process Unspecified. EDMS 21:18 BMP Sent. tw5 21:47 SARS-COV-2 RT PCR (Document "Date of Onset" if Symptomatic) Sent. tw5 22:05 Urine Microscopic Only Sent. tw5 23:18 Patient has correct armband on for positive identification. kd3 09/13 00:33 No provider procedures requiring assistance completed. IV discontinued, intact, kd3 bleeding controlled, No redness/swelling at site. Pressure dressing applied. Administered Medications: 09/12 21:18 Drug: NS 0.9% 500 ml Route: IV; Rate: bolus; Site: left forearm; tw 23:18 Follow up: Response: No adverse reaction kd3 23:29 Follow up: Response: No adverse reaction; IV Status: Completed infusion; IV Intake: tw5 500ml 21:40 Drug: Potassium Chloride 20 mEq Route: IV; Rate: calculated rate; Site: left forearm; tw 23:29 Follow up: Response: No adverse reaction; IV Status: Completed infusion; IV Intake: tw5 100ml 09/13 00:33 Follow up: Response: No adverse reaction kd3 09/12 23:29 Drug: NS 0.9% 250 ml Route: IV; Rate: 1 bolus; Site: left forearm; tw5 09/13 00:33 Follow up: Response: No adverse reaction; IV Status: Completed infusion kd3 Medication: 09/12 23:18 VIS not applicable for this client. kd3 Intake: 23:29 IV: 100ml; Total: 100ml. 23:29 IV: 500ml; Total: 600ml. Outcome: 22:24 Discharge ordered by . rn 23:41 Discharged to [facility]. Report called to Lynsey tw 09/13 00:33 Condition: stable kd3 Discharge instructions given to patient, Instructed on discharge instructions, Demonstrated understanding of instructions. 00:34 Patient left the ED. kd3 Signatures: Dispatcher [employer] EDMS Ming Byrnes MD MD rn Smirch, Shelby, RN RN ss Wood, Tiffany tw5 Thu Rust RN RN 3
[2021-09-12] MEDS ORDERED: NA CHLORIDE 0.9% 250 ML ONE (22:52)
[2021-09-13 01:19] VITALS: TEMP 98.2
[2021-09-13 01:26] VITALS: BP 105/49; O2SAT 100
--- NOTE | 2021-09-13 13:52 | EKG ---
Test Date: 2021-09-12 Test Time: 21:38:31 Fruit Picker Machine Operator: YANET MEASUREMENT RESULTS: Intervals: Rate: 70 NC: 176 QRSD: 96 QT: 448 QTc: 483 [place]: P: 77 NC: 176 QRS: 73 T: 9 INTERPRETIVE STATEMENTS: Normal sinus rhythm T wave abnormality, consider inferior ischemia Prolonged QT Abnormal ECG Compared to ECG 04/04/2021 08:55:05 T-wave abnormality now present Possible ischemia now present Prolonged QT interval now present Ventricular premature complex(es) no longer present Electronically Signed On 09-13-21 13:50:34 CDT by Adam Acevedo
== END 2021-09-13 00:34 | disposition home or self-care (01) ==
LOC: ER 19:14
DX: U07.1 COVID-19 (principal); E87.6 Hypokalemia; E86.0 Dehydration; F10.20 Alcohol dependence, uncomplicated; F20.9 Schizophrenia, unspecified
CPT/HCPCS: 93005; 87040 ×2; 85025; 80048; 36415; 82140; 87205 ×3; 85610; 83605; 85730; 82728; 84145; 86140; 71045; U0003; J3480; J7050; J7040; 81003; 81015

== ENCOUNTER → 2023-04-23 | Emergency (ER) | payer OTHER ==
--- OUTSIDE RECORDS SUMMARY | 2023-04-23 20:17 | XMS REPORT | Continuity of Care Document ---
Author Name Unknown Address [address] [facility] [address] [place] [address] [facility] Address [address] [facility] [address] [place] [address] Care Team Providers Care Procurement Services Manager Name Role Phone Unavailable Unavailable Unavailable Payers Payer Name Policy Type Policy Number Effective Date Expirati on Date Source Allergies, Adverse Reactions, Alerts Allergy Name Allergy Type Status Severity Reaction(s) Onset Date Inactive Date Treating Clinician Comments Source No Known Allergie s DA Active U 07-10 00:00: 00 [facility] No Known Allergie s DA Active U 07-10 00:00: 00 [facility] Encounters Start Date/Time End Date/Time Encounter Type Admission Type Attending Clinicians Care Facility Care Department Encounter ID Source 2020-07-18 01:30:17 Inpatient [facility]L HCACL [id number] [facility] Results Test Description Test Time Test Comments Results Result Co mments Source CBC W/AUTO [id number] 07:23:00* Test Item Value Reference Range Interpretation Comme nts WHITE BLOOD CELL (test code = WBC) 7.1 x10 3/uL 4.5-11.0 N RED BLOOD CELL (test code = RBC) 4.42 x10 6/uL 4.00-5.60 N HEMOGLOBIN (test code = HGB) 12.4 g/dL 12.5-16.9 L HEMATOCRIT (test code = HCT) 39.7 % 37.5-50.7 N MEAN CELL VOLUME (test code = MCV) 89.8 fL 81.0-99.0 N MEAN CELL HGB (test code = MCH) 28.1 pg 27.0-33.0 N MEAN CELL HGB CONCETRATION (test code = MCHC) 31.2 g/dL 33.0-37.0 L RED CELL DISTRIBUTION WIDTH CV (test code = RDW) 12.8 % 11.5-14.5 N RED CELL DISTRIBUTION WIDTH SD (test code = RDW-SD) 42.2 fL 37.0-54.0 N PLATELET COUNT (test code = PLT) 127 x10 3/uL 150-400 L MEAN PLATELET VOLUME (test c ode = MPV) 12.4 fL 7.0-9.0 H NEUTROPHIL % (test code = NT%) 58.3 % 56.0-77.0 N IMMATURE GRANULOCYTE % (test code = IG%) 0.3 % 0.0-2.0 N LYMPHOCYTE % (test code = LY%) 26.4 % 14.0-32.0 N MONOCYTE % (test code = MO%) 10.3 % 4.8-9.0 H EOSINOPHIL % (test code = EO%) 4.1 % 0.3-3.7 H BASOPHIL % (test code = BA%) 0.6 % 0.0-2.0 N NUCLEATED RBC % (test code = NRBC%) 0.0 % 0-0 N NEUTROPHIL # (test code = NT#) 4.15 x10 3/uL 2.0-7.6 N IMMATURE GRANULOCYTE # (test code = IG#) 0.02 x10 3/uL 0.00-0.03 N LYMPHOCYTE # (test code = LY#) 1.88 x10 3/uL 1.0-3.8 N MONOCYTE # (test code = MO#) 0.73 x10 3/uL 0.1-0.8 N EOSINOPHIL # (test code = EO#) 0.29 x10 3/uL 0.0-0.2 H BASOPHIL # (test code = BA#) 0.04 x10 3/uL 0.0-0.2 N NUCLEATED RBC # (test code = NRBC#) 0.00 x10 3/uL 0.0-0.1 N MANUAL DIFF REQUIRED (test c ode = MDIFF) NO [id number] 23:43:00* Test Item Value Reference Range Interpretation Comme nts TROPONIN-I (test code = TROPI) 0.015 ng/mL 0.000-0.045 N Negative: <= 0.0 45 Positive: >= 0.046 Correlation with serial results, other cardiac markers andclinical findings is necessary to determine the clinicalsignificance of this result. Results using different methodologies should not be comparedto one another as quantitative results may vary by method. [id number] 21:03:00* Test Item Value Reference Range Interpretation Comme nts TROPONIN-I (test code = TROPI) 0.017 ng/mL 0.000-0.045 N Negative: <= 0.0 45 Positive: >= 0.046 Correlation with serial results, other cardiac markers andclinical findings is necessary to determine the clinicalsignificance of this result. Results using different methodologies should not be comparedto one another as quantitative results may vary by method. Coronavirus 2019 nCoV [id number] 14:18:00* Test Item Value Reference Range Interpretation Comme [facility] Coronavirus 2019 nCoV Bedside (test code = [id number]) NEGATIVE Negative Negative results should be treated as presumptive and, ifinconsistent with clinical signs and symptoms or necessaryfor patient management, should be tested with an alternativemolecular assay. Negative results do not preclude QFNP-BgR-5kuonyrmgj and should not be used as the sole basis forpatient management decisions. Negative results should beconsidered in the context of a patient's recent exposures,history, presence of clinical signs and symptoms consistentwith COVID-19. - XR CHEST 1 [id number] 12:46:00 [facility] : 1955 Sex: [place]: St: PRE -- Name: PAT BRADFORD [facility] : 1955 Age/S: 65/M [address] [place] [address] Blvd Unit #: [id number] Loc: [place] [address] Phys: Preston Barnhart MD Acct: [id number] Dis Date: Status: PRE ER PHONE #: [phone] Exam Date: 07/10/20201236 FAX #: [phone] Reason: Chest Pain EXAMS: CPT CODE: [id number] XR CHEST 1 V 21231 EXAM: Single view AP chest. EXAM DATE: 07/10/2020 at 1234 hours CLINICAL HISTORY: Chest Pain COMPARISON: None Heart is normal in size for projection and inspiration. Atherosclerotic calcifications and tortuosity of the intrathoracic aorta is identified. The risa gs appear free of acute disease. Density in the left upper lung is thought to represent calcifications of costal cartilage. Imaged osseous structures demonstrate no acute findings. IMPRESSION: No acute cardiopulmonary findings identified. at 1246 Reported and signed by: Jayde Cody M.D. CC: Technologist: RT Pierre(Teresa) Trnscrd Date/Time/By: 07/10/2020 (7937) : By: Yan Orig Print D/T: S: 07/10/2020 (1679) PAGE 1 Signed ReportBASIC METABOLIC [id number] 12:45:00* Test Item Value Reference Range Interpretation Comme nts SODIUM (test code = NA) 142 mEq/L 134-147 N POTASSIUM (test code = K) 4.4 mEq/L 3.4-5.0 N CHLORIDE (test code = CL) 106 mEq/L 100-108 N CARBON DIOXIDE (test code = CO2) 32 mEq/l 21-33 N ANION GAP (test code = GAP) 9 0-20 N GLUCOSE (test code = GLU) 87 mg/dL 70-110 N BLOOD UREA NITROGEN (test code = BUN) 20 mg/dL 7-18 H GLOMERULAR FILTRATION RATE (test code = GFR) 43.5 80-90 L Units of measure = ml/min/1.73 m2 CREATININE (test code = CREAT) 1.6 mg/dL 0.6-1.3 H CALCIUM (test code = CA) 8.9 mg/dL 8.0-10.5 N [id number] 12:45:00* Test Item Value Reference Range Interpretation Comme nts TROPONIN-I (test code = TROPI) 0.014 ng/mL 0.000-0.045 N Negative: <= 0.0 45 Positive: >= 0.046 Correlation with serial results, other cardiac markers andclinical findings is necessary to determine the clinicalsignificance of this result. Results using different methodologies should not be comparedto one another as quantitative results may vary by method. CBC W/AUTO [id number] 12:38:00* Test Item Value Reference Range Interpretation Comme nts WHITE BLOOD CELL (test code = WBC) 9.8 x10 3/uL 4.5-11.0 N RED BLOOD CELL (test code = RBC) 4.33 x10 6/uL 4.00-5.60 N HEMOGLOBIN (test code = HGB) 12.4 g/dL 12.5-16.9 L HEMATOCRIT (test code = HCT) 38.4 % 37.5-50.7 N MEAN CELL VOLUME (test code = MCV) 88.7 fL 81.0-99.0 N MEAN CELL HGB (test code = MCH) 28.6 pg 27.0-33.0 N MEAN CELL HGB CONCETRATION (test code = MCHC) 32.3 g/dL 33.0-37.0 L RED CELL DISTRIBUTION WIDTH CV (test code = RDW) 12.7 % 11.5-14.5 N RED CELL DISTRIBUTION WIDTH SD (test code = RDW-SD) 41.2 fL 37.0-54.0 N PLATELET COUNT (test code = PLT) 148 x10 3/uL 150-400 L MEAN PLATELET VOLUME (test c ode = MPV) 11.7 fL 7.0-9.0 H NEUTROPHIL % (test code = NT%) 67.6 % 56.0-77.0 N IMMATURE GRANULOCYTE % (test code = IG%) 0.4 % 0.0-2.0 N LYMPHOCYTE % (test code = LY%) 16.0 % 14.0-32.0 N MONOCYTE % (test code = MO%) 12.8 % 4.8-9.0 H EOSINOPHIL % (test code = EO%) 2.5 % 0.3-3.7 N BASOPHIL % (test code = BA%) 0.7 % 0.0-2.0 N NUCLEATED RBC % (test code = NRBC%) 0.0 % 0-0 N NEUTROPHIL # (test code = NT#) 6.62 x10 3/uL 2.0-7.6 N IMMATURE GRANULOCYTE # (test code = IG#) 0.04 x10 3/uL 0.00-0.03 H LYMPHOCYTE # (test code = LY#) 1.57 x10 3/uL 1.0-3.8 N MONOCYTE # (test code = MO#) 1.26 x10 3/uL 0.1-0.8 H EOSINOPHIL # (test code = EO#) 0.25 x10 3/uL 0.0-0.2 H BASOPHIL # (test code = BA#) 0.07 x10 3/uL 0.0-0.2 N NUCLEATED RBC # (test code = NRBC#) 0.00 x10 3/uL 0.0-0.1 N MANUAL DIFF REQUIRED (test c ode = MDIFF) NO Notes Date/Time Note Provider Source 2020-07-11 09:40:00 [id number] /IzVyBXhMvFz/SSEIPGgDZuJ9jZmM fvQzR62Xw86GeRtbl0UTXjrH/+qkfTlen86559-16-13B73:4 0:[id number] [address] PATIENT NAME: PAT BRADFORD ADMIT DATE: 07/10/20ACCOUNT NO: [id number] ROOM NO: [facility] AGE: 65 REPORT TYPE: eELECTROCARDIOGRAM REPORT SEX: M ADMITTING PHYSICIAN:Moreno Davidson MD ATTENDING PHYSICIAN:Moreno Davidson MD Order:[id number] Reason : hypotension Test Date/Time Stamp:FriJul 11 2020 09:40:28Blood Pressure : / mmHGVent. Rate : 071 BPM Atrial Rate : 071 BPM P-R Int : 172 ms QRS Dur : 084 ms QT Int : 402 ms P-R-T Axes : 049 054 037 degrees QTc Int : 436 ms Normal sinus rhythmNormal ECGWhen compared with ECG of 10-JUL-2020 18:52,Significant changes have occurredConfirmed by RONEY DUNNE ([id number]) on 07/12/2020 8:24:50 AM Referred By: Moreno Davidson Confirmed by:RONEY DUNNE at 0825 PATIENT NAME: PAT BRADFORD .[id number] AVAvailable for patient cfdaJNDMMCZWNFKZOF3065-14-87K97:25:17 [facility] 2020-07-10 19:59:00 [id number] FFC6e6aRPlQkIgm0M5lJCFlupVkaz MaAHedOyhuYuLUW9XJnT8RCGC77DIDtWki4557-93-24P91:5 9:00 [facility] History PhysicalREPORT#:[id number] REPORT STATUS: SignedDATE:07/10/20 TIME: 1958 PATIENT: PAT BRADFORD UNIT #: [id number]#: [id number] ROOM/BED: [id number]: [birth year] AGE: 65 SEX: M ATTEND: Moreno Davidson MDADM AUTHOR: Nathaniel Pimentel MD * ALL edits or amendments must be made on the electronic/computer document * History of Present Illness HPIChief complaint:Referred to the emergency room due to low blood pressure for 2 days.PCP:PCP: No Primary or Family Physician HPI:65-year-old man with past medical history of of advanced dementia with behavioral disturbance was referred from [facility] [address] due to hypotension for the last 2 days. Patient does have history of hypertension and his blood pressure medication has been held for 2 days. Apparently has no history of fever or chills. There have been no nausea or vomiting. There have been no diarrhea. Unfortunately patient cannot give any history since is confused and agitated. Medical records from the referring facility were reviewed by me, patient has been in this facility since May 29, 2020. Patient was transferred there from [facility] in [place], [place]. He has been there since February 25, 2020. History Past Medical Surgical HxPatient History: 1. HTN (hypertension) 2. Dementia associated with alcoholism with behavioral disturbance 3. Alcoholism Social HistoryAlcohol use: In recoverySmoking status: Smoking status for patients 13 years old or older: Unknown,if ever smoked Medication/Allergy-Vaccine HxMedications:Home Medications:busPIRone (BUSPAR) 10 MG PO TID DIVALPROEX DR (DEPAKOTE DR) 500 MG PO TID FOLIC ACID 1 MG PO DAILY LISINOPRIL (ZESTRIL) 20 MG PO DAILY MELATONIN 1 TAB SL BEDTIME QUEtiapine (SEROquel) 50 MG PO DAILY QUEtiapine XR (SEROquel XR) 150 MG PO QPM RIVASTIGMINE (EXELON) 1 PATCH TRANSDERM DAILY THIAMINE (VITAMIN B-1) 100 MG PO BID hydrOXYzine PAMOATE (VISTARIL) 50 MG PO QID PRN PRN AGITATION ESCITALOPRAM (LEXAPRO) 10 MG PO DAILY Allergies:Coded Allergies:No Known Allergies (07/10/20) Unable to obtain: family history Review of SystemsUnable to obtain due to:Patient mental status. Physical ExamVS/I O:Vital Signs Date Temp Pulse Resp B/P B/P Mean Pulse Ox FiO2 07/10 98.5 58-60 16-18 84-137/47-62 59-87 96-100 Last Documented: Result Date Time Pulse Ox 100 07/10 1854 B/P 137/62 07/10 1854 B/P Mean 87 07/10 1854 Pulse 60 07/10 1854 Resp 18 07/10 1854 O2 Delivery Room air 07/10 1211 Temp 98.5 07/10 1211 Patient Weight and BMI Weight (kg): 99.500 BMI: 29.8 General appearance: altered mental statusHead/Eyes: atraumatic, EOMI, normal conjunctiva/sclera, PERRLAENT: moist mucosal membranesNeck: full range of motion, no bruit/NL carotids, no JVDCardiovascular: normal heart sounds, regular rate rhythmRespiratory: aerating well, clear to auscultation, symmetric expansion, no distressAbdomen: non-tender, soft, no distentionExtremities: moves all, no cyanosis, no edemaNeuro/CONTINUING EDUCATION DEAN: altered mental status, alert, normal speech, no motor deficits, no sensory deficitsSkin: intact, normal color, no rash ResultsFindings/Data:Laboratory Tests: 07/10 07/10 1225 1220 Chemistry Sodium (134 - 147 mEq/L) 142 Potassium (3.4 - 5.0 mEq/L) 4.4 Chloride (100 - 108 mEq/L) 106 Carbon Dioxide (21 - 33 mEq/l) 32 Anion Gap (0 - 20) 9 BUN (7 - 18 mg/dL) 20 H Creatinine (0.6 - 1.3 mg/dL) 1.6 H Glomerular Filtr Rate (80 - 90) 43.5 L Glucose (70 - 110 mg/dL) 87 Calcium (8.0 - 10.5 mg/dL) 8.9 Troponin I (0.000 - 0.045 ng/mL) 0.014 Hematology WBC (4.5 - 11.0 x10 3/uL) 9.8 RBC (4.00 - 5.60 x10 6/uL) 4.33 Hgb (12.5 - 16.9 g/dL) 12.4 L Hct (37.5 - 50.7 %) 38.4 MCV (81.0 - 99.0 fL) 88.7 MCH (27.0 - 33.0 pg) 28.6 MCHC (33.0 - 37.0 g/dL) 32.3 L RDW (11.5 - 14.5 %) 12.7 Plt Count (150 - 400 x10 3/uL) 148 L MPV (7.0 - 9.0 fL) 11.7 H Neut % (Auto) (56.0 - 77.0 %) 67.6 Lymph % (Auto) (14.0 - 32.0 %) 16.0 [place] % (Auto) (4.8 - 9.0 %) 12.8 H Eos % (Auto) (0.3 - 3.7 %) 2.5 Baso % (Auto) (0.0 - 2.0 %) 0.7 Neut # (Auto) (2.0 - 7.6 x10 3/uL) 6.62 Lymph # (Auto) (1.0 - 3.8 x10 3/uL) 1.57 [place] # (Auto) (0.1 - 0.8 x10 3/uL) 1.26 H Eos # (Auto) (0.0 - 0.2 x10 3/uL) 0.25 H Baso # (Auto) (0.0 - 0.2 x10 3/uL) 0.07 Abs Immat Gran (auto) (0.00 - 0.03 x10 3/uL) 0.04 H Add Manual Diff NO Immature Gran % (0.0 - 2.0 %) 0.4 Nucleated RBC % (0 - 0 %) 0.0 Nucleated RBCs # (Man) (0.0 - 0.1 x10 3/uL) 0.00 Serology SARS CoV-2 RNA Rapid JASON (Negative) NEGATIVE Radiology data:Recent Impressions:RADIOLOGY - XR CHEST 1 V 07/10 1237 Report Impression - Status: SIGNED Entered: 07/10/2020 1249 IMPRESSION: No acute cardiopulmonary findings identified.Impression By: Yan Cody M.D. Diagnosis, Assessment PlanProblem List/A P: 1. Hypotension More likely secondary to dehydration. Baseline blood work in May shows a normal renal function. At that time he had a BUN of 14 and a creatinine of 0.9. Patient blood pressure improved after getting IV fluids in the emergency room. We will continue with IV fluids and monitor renal function. 2. Dehydration May be secondary to poor p.o. intake. Due to his underlying dementia patient has multiple sedative that may have to increase his p.o. intake. We will hydrate. 3. HTN (hypertension) History of hypertension and lisinopril. Currently is has been held due to his hypotension. 4. Dementia associated with alcoholism with behavioral disturbance Multiple medications at the [facility]. We will resume this medications but monitor closely to avoid oversedation since this may be causing decrease in p.o. intake. Work-up from referring facility demonstrated a normal B12 level and TSH. 5. DANNI (acute kidney injury) Due to prerenal acidemia. We will hydrate the patient and monitor. Resuscitation discussion: Discussed with: patient Quality: Gen [facility] Crit Care Current MedicationsCurrent medication review:I attest that the foregoing medication list in the medical record is true, accurate, and complete to the best of my knowledge. VTE ProphylaxisVTE prophylaxis initiated: yes Advanced Care Plan 65 or OlderUnable to discuss: Pt unable to: name surrogate (pt has AMS/psychosis), provide adv. care plan (pt has AMS/psychosis) at 0752 RPT #:[id number] OF REPORTHPHistory and physical xsnniasciki0629-26-22B86:59:00G.[id number] AVAvailable for patient oeehGYLYJGXZTCWSKL4980-38-07Z91:52:22 [facility] 2020-07-10 12:22:00 [id number]+ KT8SpYIgwvTSVBuqrEBBkAXBemowv GWbnPdWa2z68Bs2ejAoaVkC1HlgdeNDgF02377-02-60Q33:2 2:00 [facility] ([facility] PROVID[facility] REPORTREPORT#:[id number] REPORT STATUS: SignedDATE:07/10/20 TIME: 1222 PATIENT: PAT BRADFORD UNIT #: [id number]#: [id number] [address] 65 SEX: M PCP PHYS: No Primary or Family PhysicianSERVICE AUTHOR: Preston Barnhart MD * ALL edits or amendments must be made on the electronic/computer document * HPI-General Illness GeneralInitial Greet Date/Time 07/10/20 1213 PresentationChief Complaint __ (hypotension)Hx Obtained From EMSSudden in Onset? NoOnset Occurred Days ago (3)Symptom Duration Since onsetProgression since Onset Constant Free Text HPI NotesFree Text HPI NotesThielma is a 65-year-old male presenting to the emergency department with persistent hypotension for the past 3 days. Patient is admitted to [facility] and has a history of hypertension. Upon finding his blood pressure being low his lisinopril was discontinued but his blood pressure remains low. He is asymptomatic and denies any dizziness, lightheadedness, chest pain, shortness of breath, abdominal pain, vomiting, diarrhea, melena, hematuria, urinary frequency, urinary urgency, dysuria, headache, back pains. Review of Systems ROS StatementsAll systems rev neg except as marked. Past Medical History - AdultStated Complaint HYPOTENSIONAllergiesCoded Allergies:No Known Allergies (07/10/20) Home MedicationsReported MedicationsbusPIRone (BUSPAR) 10 MG PO TID DIVALPROEX DR (DEPAKOTE DR) 500 MG PO TID FOLIC ACID 1 MG PO DAILY LISINOPRIL (ZESTRIL) 20 MG PO DAILY MELATONIN 1 TAB SL BEDTIME QUEtiapine (SEROquel) 50 MG PO DAILY QUEtiapine XR (SEROquel XR) 150 MG PO QPM RIVASTIGMINE (EXELON) 1 PATCH TRANSDERM DAILY THIAMINE (VITAMIN B-1) 100 MG PO BID hydrOXYzine PAMOATE (VISTARIL) 50 MG PO QID PRN PRN AGITATION ESCITALOPRAM (LEXAPRO) 10 MG PO DAILY Smoking status: Smoking status for patients 13 years old or older: Unknown,if ever smoked Physical Exam Vital SignsVital SignsFirst Documented: Result Date Time Pulse Ox 96 07/10 1211 B/P 84/47 / 1211 B/P Mean 59 05/ 1211 O2 Delivery Room air 05/ 1211 Temp 36.9 05/ 1211 Pulse 58 05/ 1211 Resp 16 05/ 1211 Last Documented: Result Date Time Pulse Ox 97 05/ 1338 B/P 103/55 05/ 1338 B/P Mean 71 05/ 1338 Pulse 60 05/ 1338 Resp 16 05/ 1338 O2 Delivery Room air 07/10 1211 Temp 36.9 05/03 1211 Review of Vital Signs Reviewed, Vital signs abnormal Free Text PE NotesFree Text PE NotesGeneral/Const General/Const Awake, Alert, No acute distress, Well appearing, Well developed, Well hydrated, Well nourished, Cooperative, Not toxic appearingMS Head Head NormocephalicEyes Eyes PERRL, EOMIEars/Nose/Throat Ears/Nose/Throat Airway patent, Mucous membranes moist, Tympanic membs NLResp/Chest Respiratory/Chest Breath sounds NL, Breath sounds = bilat, No respiratory distressCardiovascular Cardiovascular Heart rate NL, Regular rhythm, Heart sounds NLAbdomen/GI Abdomen/GI Soft, Non-tender, No guarding, No rebound, BS normoactive, No distentionSkin Skin Color NL, No rash, Warm, DryNeurologic Alert Oriented X3, Speech NL, No motor deficits, No sensory deficits, CN II- XII intact, Reflexes equal bilat, Cerebellar NL Interpretation Diagnostics Lab Results InterpretationResultsLaboratory Tests 07/10/20 1220:[Embedded Image Not Available]Laboratory Tests: 07/10 07/10 1225 1220 Chemistry Sodium (134 - 147 mEq/L) 142 Potassium (3.4 - 5.0 mEq/L) 4.4 Chloride (100 - 108 mEq/L) 106 Carbon Dioxide (21 - 33 mEq/l) 32 Anion Gap (0 - 20) 9 BUN (7 - 18 mg/dL) 20 H Creatinine (0.6 - 1.3 mg/dL) 1.6 H Glomerular Filtr Rate (80 - 90) 43.5 L Glucose (70 - 110 mg/dL) 87 Calcium (8.0 - 10.5 mg/dL) 8.9 Troponin I (0.000 - 0.045 ng/mL) 0.014 Hematology WBC (4.5 - 11.0 x10 3/uL) 9.8 RBC (4.00 - 5.60 x10 6/uL) 4.33 Hgb (12.5 - 16.9 g/dL) 12.4 L Hct (37.5 - 50.7 %) 38.4 MCV (81.0 - 99.0 fL) 88.7 MCH (27.0 - 33.0 pg) 28.6 MCHC (33.0 - 37.0 g/dL) 32.3 L RDW (11.5 - 14.5 %) 12.7 Plt Count (150 - 400 x10 3/uL) 148 L MPV (7.0 - 9.0 fL) 11.7 H Neut % (Auto) (56.0 - 77.0 %) 67.6 Lymph % (Auto) (14.0 - 32.0 %) 16.0 [place] % (Auto) (4.8 - 9.0 %) 12.8 H Eos % (Auto) (0.3 - 3.7 %) 2.5 Baso % (Auto) (0.0 - 2.0 %) 0.7 Neut # (Auto) (2.0 - 7.6 x10 3/uL) 6.62 Lymph # (Auto) (1.0 - 3.8 x10 3/uL) 1.57 [place] # (Auto) (0.1 - 0.8 x10 3/uL) 1.26 H Eos # (Auto) (0.0 - 0.2 x10 3/uL) 0.25 H Baso # (Auto) (0.0 - 0.2 x10 3/uL) 0.07 Abs Immat Gran (auto) (0.00 - 0.03 x10 3/uL) 0.04 H Add Manual Diff NO Immature Gran % (0.0 - 2.0 %) 0.4 Nucleated RBC % (0 - 0 %) 0.0 Nucleated RBCs # (Man) (0.0 - 0.1 x10 3/uL) 0.00 Serology SARS CoV-2 RNA Rapid JASON (Negative) NEGATIVE Recent Impressions:RADIOLOGY - XR CHEST 1 V 07/10 1237 Report Impression - Status: SIGNED Entered: 07/10/2020 1249 IMPRESSION: No acute cardiopulmonary findings identified.Impression By: Yan Cody M.D. Lab Imaging StatementLaboratory radiographic studies reviewed and considered in the medical decision-making. ECG #1 InterpretationDate 07/10/20Time 1232Interpreted by ED physicianNL ECG Interpretation Normal rate, Normal sinus rhythm, No acute ischemic changes, No STEMI, Normal QRS, Normal T waves, Normal axis, Normal intervals, Adequate tracingRate 60ECG Q-T-ST - [place] Non-specific ST changes Re-Evaluation MDM Re-Evaluation/Progress #1Text/Dict NotePatient restless slightly agitated requiring Ativan for some sedation. Blood pressure has been normal after hydration with 1 L of normal saline last blood pressure was 101 systolic.Time of Re-Eval 1511Re-Eval Status Improved ED CourseMedication(s) OrderedMedication(s) Ordered:Central Nervous System Agents Sig/Woo Start time Last Medication Dose Route Stop Time Status Admin Lorazepam 2 MG X1ED STA 07/10 1502 DC 05/03 IV / 1503 1509 Lorazepam 0 .STK-MED ONE 07/10 1502 DC IV Electrolytic, Caloric, And Jennifer Sig/Woo Start time Last Medication Dose Route Stop Time Status Admin Sodium Chloride 0 ASDIR PRN 07/10 1515 AC IV 08/09 1514 Sodium Chloride 0 ASDIR PRN 07/10 1230 AC IV 07/11 1121 Sodium Chloride 1,000 ML X1ED STA 07/10 1221 DC 05/ IV 05 1320 1229 Patient Discharge Departure Vital Signs/ConditionVital SignsFirst Documented: Result Date Time Pulse Ox 96 05/ 1211 B/P 84/47 05/ 1211 B/P Mean 59 05/ 1211 O2 Delivery Room air 05/ 1211 Temp 36.9 05/03 1211 Pulse 58 05/03 1211 Resp 16 05/ 1211 Last Documented: Result Date Time Pulse Ox 97 05/ 1338 B/P 103/55 05/03 1338 B/P Mean 71 05/03 1338 Pulse 60 05/03 1338 Resp 16 05/03 1338 O2 Delivery Room air 05/ 1211 Temp 36.9 05/03 1211 All vital signs available at the time of this entry have been reviewed. Condition Stable Clinical ImpressionClinical ImpressionPrimary Impression: DehydrationSecondary Impressions: Hypotension Disposition DecisionAdmit Admit Physician Name Moreno Davidson MD Admit Physician Hospitalist Request Time 151 Request Date 07/10/20 )( Admission Accepts Yes )( Accepted Time 1513 )( Accepted Date 07/10/20 Call Information will see patient, agrees with eval, agrees with plan Discharge/Care PlanCounseled Regarding Diagnosis, Lab results, Imaging studies, Need for admission Critical CareTime Spent (minutes): 30Services Performed Patient management by me, Time spent at bedside, Reviewing test results, Reviewing imaging, Discussing patient care, Documentation in record, Time with fam/surrogateSeparately billable procedures excluded from time. at 1343RPT #:[id number] OF REPORTEmelincoln hospital department kvrlqr7274-88-00Z42:22:00G.[id number] ilable for patient xaziQKURXSQVJKHCLC2797-89-69A64:44:20 HCACL
--- NOTE | 2023-04-23 20:50 | RAD REPORT ---
EXAM DESCRIPTION: CT - [id number] - 04/23/2023 8:40 pm CLINICAL HISTORY: Trauma, head and neck injury. TRAUMA COMPARISON: Head Brain Wo Cont dated 04/04/2021 TECHNIQUE: Axial 5 mm thick images of the head were obtained. Axial 2 mm thick images of the cervical spine were obtained with sagittal and coronal reconstruction images generated and reviewed. All CT scans are performed using dose optimization technique as appropriate and may include automated exposure control or mA/KV adjustment according to patient size. FINDINGS: CT HEAD WITHOUT CONTRAST: No acute hemorrhage, hydrocephalus or extra-axial collection is identified.Advanced brain atrophy is present. Small old lacunar infarcts are seen in the basal ganglia bilaterally.No areas of brain edema or midline shift. Mild mucosal thickening is seen in the ethmoid air cells and both maxillary antra.The calvarium is in tact. CT CERVICAL SPINE WITHOUT CONTRAST: No fracture or subluxation.Mild lower cervical spondylosis.No prevertebral soft tissues swelling is i dentified. IMPRESSION: No acute intracranial or cervical spine findings.
--- NOTE | 2023-04-23 21:06 | RAD REPORT ---
EXAM DESCRIPTION: RAD - Shoulder Right 2 View - 04/23/2023 8:58 pm CLINICAL HISTORY: PAIN COMPARISON: No comparisons FINDINGS: Mild AC joint and glenohumeral joint arthritic changes. No fracture, dislocation or aggres sive marrow pattern.
--- NOTE | 2023-04-23 21:07 | RAD REPORT ---
EXAM DESCRIPTION: RAD - Humerus Right - 04/23/2023 8:58 pm CLINICAL HISTORY: PAIN COMPARISON: <Comparisons> FINDINGS: No acute fracture or dislocation is seen.
--- NOTE | 2023-04-23 21:12 | ER ---
Nurse's Notes [facility] Name: Zac Perez Age: 68 yrs Sex: Male : 1955 Arrival Date: 04/23/2023 Time: 20:15 Bed 5 Private MD: Diagnosis: Fall from bed, initial encounter;Unspecified injury of head, initial encounter Presentation: 04/23 20:16 Chief complaint: EMS states: unwitnessed fall from skilled nursing, pt is awake. baseline rv2 confused. awake upon arrival. no wound. Coronavirus screen: At this time, the client does not indicate any symptoms associated with coronavirus-19. Ebola Screen: No symptoms or risks identified at this time. Initial Sepsis Screen: Does the patient meet any 2 criteria? No. Patient's initial sepsis screen is negative. Does the patient have a suspected source of infection? No. Patient's initial sepsis screen is negative. Risk Assessment: Do you want to hurt yourself or someone else? Patient reports no desire to harm self or others. Onset of symptoms was April 23, 2023. 20:16 Method Of Arrival: EMS: [facility] rv2 20:16 Acuity: HASEEB 3 rv2 Triage Assessment: 20:18 General: Appears comfortable, Behavior is quiet. Pain: Unable to use pain scale. rv2 Patient is disoriented. Neuro: Level of Consciousness is awake, alert, confused, Oriented to none. Cardiovascular: Capillary refill < 3 seconds Patient's skin is warm and dry. Respiratory: Airway is patent Respiratory effort is even, unlabored. GI: No signs and/or symptoms were reported involving the gastrointestinal system. : No signs and/or symptoms were reported regarding the genitourinary system. Derm: Skin is intact. Historical: - Allergies: 20:18 No Known Allergies; rv2 - PMHx: 20:18 Alcoholism; Anxiety; Major Depressive Disorder; Schizophrenia; rv2 - PSHx: 20:18 Unable to Obtain; rv2 - Immunization history:: Adult Immunizations up to date. - Social history:: Smoking status: Patient denies any tobacco usage or history of. Screenin:20 [facility] ED Fall Risk Assessment (Adult) History of falling in the last 3 months, rv2 including since admission Yes- single mechanical fall (1 pt) Confusion or Disorientation Yes (5 pts) Intoxicated or Sedated No (0 pts) Impaired Gait Yes (1 pt) Mobility Assist Device Used Yes (1 pt) Altered Elimination Yes (1 pt) Score/Fall Risk Level 3 or more points = High Risk Oriented to surroundings, Maintained a safe environment, Educated pt \T\ family on fall prevention, incl call for assistance when getting out of bed, Assessed \T\ reinforced patient's understanding of fall precautions. Abuse screen: Denies threats or abuse. Denies injuries from another. Nutritional screening: No deficits noted. Tuberculosis screening: No symptoms or risk factors identified. Assessment: 22:39 Reassessment:. Neuro: Level of Consciousness is awake, alert, confused. Cardiovascular: as9 Capillary refill < 3 seconds Patient's skin is warm and dry. Respiratory: Airway is patent Respiratory effort is even, unlabored, Respiratory pattern is regular, symmetrical. Vital Signs: 20:15 BP 125 / 66; Pulse 63; Resp 18; Pulse Ox 99% on R/A; as9 20:16 BP 117 / 73; Pulse 71; Resp 16; Temp 98; Pulse Ox 99% ; rv2 21:34 BP 126 / 59; Pulse 62; Resp 18; Pulse Ox 100% on R/A; as9 22:00 BP 109 / 90; Pulse 60; Resp 18; Pulse Ox 100% on R/A; as9 22:15 BP 123 / 58; Pulse 61; Resp 17; Temp 98; Pulse Ox 100% on R/A; as9 ED Course: 20:16 Patient arrived in ED. ty 20:16 ROBERTA GastelumII, Austen, RN is Primary Nurse. rv2 20:18 Triage completed. rv2 20:18 Arm band placed on right wrist. rv2 20:19 [facility] Boyd [facility]C [facility] kb 20:19 Israel Vasquez MD is Attending Physician. kb 20:20 Patient has correct armband on for positive identification. Client placed on continuous rv2 cardiac and pulse oximetry monitoring. NIBP monitoring applied. chief engineer production on. 20:20 No provider procedures requiring assistance completed. Patient did not have IV access rv2 during this emergency room visit. 20:40 CT Head C Spine In Process Unspecified. EDMS 21:00 Shoulder Right (2 View) XRAY In Process Unspecified. EDMS 21:00 Humerus Right XRAY In Process Unspecified. EDMS Administered Medications: No medications were administered Medication: 20:20 VIS not applicable for this client. rv2 Outcome: 21:11 Discharge ordered by . kb 22:34 Discharged to skilled nursing. Transfer form completed. as9 22:34 Condition: good 22:34 Discharge instructions given to EMS, Instructed on discharge instructions, 22:41 Patient left the ED. as9 Signatures: Dispatcher [employer] EDMS Gilma Boyd, STAN-C COMPUTER HARDWARE TECHNICIAN-KENYA Sesay, Austen, RN RN rv2 Harry Spain Aaron, RN RN as9
--- NOTE | 2023-04-23 21:12 | EDPHYS ---
Physician Documentation [facility] Name: Zac Perez Age: 68 yrs Sex: Male : 1955 Arrival Date: 04/23/2023 Time: 20:15 Bed 5 Private MD: ED Physician Israel Vasquez HPI: 04/23 21:11 This 68 yrs old Male presents to ER via EMS with complaints of fall. kb 21:26 Patient is a 68-year-old male who was brought in after rolling out of his bed. Nursing home staff says that patient's roommate called for help as soon as patient rolled out of bed. They were able to lift him with a Dex lift back into bed and they called EMS. Patient had slight red shelly on top of head and his right arm was underneath him so they were concerned about his shoulder. Patient is nonverbal and has dementia.. Historical: - Allergies: 20:18 No Known Allergies; rv2 - PMHx: 20:18 Alcoholism; Anxiety; Major Depressive Disorder; Schizophrenia; rv2 - PSHx: 20:18 Unable to Obtain; rv2 - Immunization history:: Adult Immunizations up to date. - Social history:: Smoking status: Patient denies any tobacco usage or history of. ROS: 21:10 Constitutional: Negative for fever, chills, and weight loss, kb 21:10 Unable to obtain ROS due to baseline dementia, Exam: 21:09 Constitutional: This is a well developed, well nourished patient who is awake, alert, kb and in no acute distress. Head/Face: Normocephalic, atraumatic. ENT: Moist Mucous membranes Cardiovascular: Regular rate Respiratory: Respirations even and unlabored. No increased work of breathing. Talking in full sentences Abdomen/GI: Soft, non-tender. No distention Skin: Warm, dry with normal turgor. Normal color. 21:09 Musculoskeletal/extremity: Extremities: grossly normal except: noted in the right arm: pulls arm away with passive ROM, Circulation is intact in all extremities. 21:09 Neuro: Exam negative for acute changes, Vital Signs: 20:15 BP 125 / 66; Pulse 63; Resp 18; Pulse Ox 99% on R/A; as9 20:16 BP 117 / 73; Pulse 71; Resp 16; Temp 98; Pulse Ox 99% ; rv2 21:34 BP 126 / 59; Pulse 62; Resp 18; Pulse Ox 100% on R/A; as9 22:00 BP 109 / 90; Pulse 60; Resp 18; Pulse Ox 100% on R/A; as9 22:15 BP 123 / 58; Pulse 61; Resp 17; Temp 98; Pulse Ox 100% on R/A; as9 MDM: 20:19 Patient medically screened. kb 21:09 Differential diagnosis: abrasion, closed head injury, contusion, fracture. Data kb reviewed: vital signs, nurses notes. Historians other than the Patient: EMS: [facility]. Counseling: I had a detailed discussion with the patient and/or guardian regarding the historical points, exam findings, and any diagnostic results supporting the discharge/admit diagnosis, radiology results, the need for outpatient follow up, a family practitioner, to return to the emergency department if symptoms worsen or persist or if there are any questions or concerns that arise at home. 04/23 20:35 Order name: Glucose, Ancillary Testing; Complete Time: 20:42 EDMS 04/23 20:20 Order name: CT Head C Spine; Complete Time: 21:08 kb 04/23 20:20 Order name: Shoulder Right (2 View) XRAY; Complete Time: 21:08 kb 04/23 20:20 Order name: Humerus Right XRAY; Complete Time: 21:11 kb Administered Medications: No medications were administered Disposition: 04/24 04:05 Co-signature as Attending Physician, Israel Vasquez MD I agree with the assessment sp4 and plan of care. I reviewed the patient's care provided by the Advanced Practice Provider and agree with the diagnosis and treatment plan. Disposition Summary: 04/23/23 21:11 Discharge Ordered Notes: Location: Home kb Condition: Stable kb Diagnosis - Fall from bed, initial encounter kb - Unspecified injury of head, initial encounter kb Followup: kb - With: Emergency Department - When: As needed - Reason: Worsening of condition Followup: kb - With: Private Physician - When: 2 - 3 days - Reason: Recheck today's complaints, Continuance of care, Re-evaluation by your physician Discharge Instructions: - Discharge Summary Sheet kb - Head Injury, Adult, [id number] kb Forms: - Medication Reconciliation Form kb - Thank You Letter kb - Antibiotic Education kb - Prescription Opioid Use kb - Patient Portal Instructions kb - Leadership Thank You Letter kb Signatures: Dispatcher [employer] Gilma Sherwood, PROFESSOR OF FRENCH-C STAN-Israel Wood MD MD sp4 ROBERTA GastelumII, Austen RN RN rv2
[2023-04-23 22:50] VITALS: TEMP 98; O2SAT 100
[2023-04-23 23:15] VITALS: BP 123/58
== END ==
LOC: ER 20:15
DX: S09.90XA Unspecified injury of head, initial encounter (principal); W06.XXXA Fall from bed, initial encounter; F10.20 Alcohol dependence, uncomplicated
CPT/HCPCS: 70450; 72125; 82947